=== PATIENT | male | born 1980 | race Caucasian/White ===

== ENCOUNTER 2017-10-31 20:59 | Emergency (ER) | payer BC, OTHER ==
[2017-10-31] MEDS ORDERED: TETRACAINE HCL 0.5% OPH SOLN 2 ML OU ONE (21:16)
--- NOTE | 2017-10-31 21:16 | ER Document Report ---
ED Eye Complaint - General Mode of Arrival: Ambulatory Information source: Patient TRAVEL OUTSIDE OF THE [place] IN LAST 30 DAYS: No <ANNE MARSH - Last Filed: 10/31/17 22:09> <BETHANY RICH - Last Filed: 11/01/17 02:38> - General Chief Complaint: Eye Injury Stated Complaint: EYE INJURY Notes: Patient is a 37-year-old male who presents to the emergency department today with complaints of getting [employer] "hydraulic cement" in his eyes bilaterally, right more than left, while at work just prior to arrival today. Patient states he got approximately "half of a handful of powder" in his eyes. Patient states "the powder mixes with water and then it activates". Patient states that when this occurred, he immediately "crawled approximately 200 feet out of the pipe and rinsed his eyes". Patient states he called 911 when exiting the pipe and the police showed up first with a "contact solution". Patient states that his bought him Visine as well which minimally relieved his symptoms. Patient states he called the [employer] who told him that he had a " 3 hour window to play with". Patient states his eyes felt crusty. Patient states he does not believe he inhaled any of the powder. (ANNE MARSH) - Related Data Allergies/Adverse Reactions: brompheniramine maleate [From Rondec] Allergy (Verified 10/31/17 21:22) carbinoxamine maleate [From Rondec] Allergy (Verified 10/31/17 21:22) pseudoephedrine HCl [From Rondec] Allergy (Verified 10/31/17 21:22) Past Medical History - General Information source: Patient - Social History Smoking Status: Never Smoker Cigarette use (# per day): No Frequency of alcohol use: None Drug Abuse: None Lives with: Family Family History: Reviewed & Not Pertinent, CAD, Hyperlipidemia, Thyroid Disfunction - Past Medical History Cardiac Medical History: Reports: Hx Hypercholesterolemia Pulmonary Medical History: Reports: Hx Bronchitis GI Medical History: Reports: Hx Gastroesophageal Reflux Disease Psychiatric Medical History: Reports: Hx Anxiety, Hx Depression Traumatic Medical History: Reports: Hx Fractures Past Surgical History: Reports: Hx Appendectomy, Hx Orthopedic Surgery - ankle pinsright, both knees - Immunizations Immunizations up to date: Yes <ANNE MARSH - Last Filed: 10/31/17 22:09> Review of Systems - Review of Systems Constitutional: No symptoms reported EENT: See HPI, Eye pain - bilateral R>L, "hydraulic cement" Cardiovascular: No symptoms reported Respiratory: See HPI, Other - Denies: Inhaling powder Gastrointestinal: No symptoms reported Genitourinary: No symptoms reported Male Genitourinary: No symptoms reported Musculoskeletal: No symptoms reported Skin: No symptoms reported Hematologic/Lymphatic: No symptoms reported Neurological/Psychological: No symptoms reported -: Yes All other systems reviewed and negative <ANNE MARSH - Last Filed: 10/31/17 22:09> Physical Exam - Vital signs Interpretation: Normal - General General appearance: Appears well, Alert - HEENT Head: Normocephalic, Atraumatic Eyes: Normal Cornea: Corneal abrasion, Flourescein stain uptake Extraocular movements intact: Yes Pupils: PERRL - Respiratory Respiratory status: No respiratory distress Chest status: Nontender Breath sounds: Normal Chest palpation: Normal - Cardiovascular Rhythm: Regular Heart sounds: Normal auscultation Murmur: No - Abdominal Inspection: Normal Distension: No distension Bowel sounds: Normal Tenderness: Nontender Organomegaly: No organomegaly - Back Back: Normal, Nontender - Extremities General upper extremity: Normal inspection, Nontender, Normal color, Normal ROM , Normal temperature General lower extremity: Normal inspection, Nontender, Normal color, Normal ROM , Normal temperature, Normal weight bearing. No: Jeff's sign - Neurological Neuro grossly intact: Yes Cognition: Normal Orientation: AAOx4 [place] Coma Scale Eye Opening: Spontaneous Aren Coma Scale Verbal: Oriented [place] Coma Scale Motor: Obeys Commands Aren Coma Scale Total: 15 Speech: Normal Motor strength normal: LUE, RUE, LLE, RLE Sensory: Normal - Psychological Associated symptoms: Normal affect, Normal mood - Skin Skin Temperature: Warm Skin Moisture: Dry Skin Color: Normal <BETHANY RICH - Last Filed: 11/01/17 02:38> - Vital signs Vitals: Temp Pulse Resp BP Pulse Ox 97.7 F 77 18 136/97 H 97 10/31/17 21:06 10/31/17 21:06 10/31/17 21:06 10/31/17 21:06 10/31/17 21:06 Course <ANNE MARSH - Last Filed: 10/31/17 22:09> <BETHANY RICH - Last Filed: 11/01/17 02:38> - Re-evaluation Re-evalutation: 11/01/17 Patient is a 37-year-old man who got hydraulic concrete in his bilateral eyes. Left eye has had complete resolution of symptoms after irrigation. Right eye has a very large corneal abrasion at 6:00 taking up about 20% of his iris. Patient was discussed with ophthalmology, , who plans to see the patient in the morning. He has been given erythromycin and Polytrim as well as ketorolac eyedrops. Patient is agreeable to this plan. He has had multiple re-evaluations. Stable for discharge. (BETHANY RICH) - Vital Signs Vital signs: Temp Pulse Resp BP Pulse Ox 97.7 F 77 18 136/97 H 97 10/31/17 21:06 10/31/17 21:06 10/31/17 21:06 10/31/17 21:06 10/31/17 21:06 Procedures - Eye Procedure Right Foreign body removal: Right Alcaine Drops Administered: Yes Fluorescein applied: Left Antibiotic Oinment/Drps Admin: Right eye Slit lamp used: No <BETHANY RICH - Last Filed: 11/01/17 02:38> Discharge <ANNE MARSH - Last Filed: 10/31/17 22:09> <BETHANY RICH - Last Filed: 11/01/17 02:38> - Discharge Clinical Impression: Chemical exposure of eye Corneal abrasion, right Qualifiers: Encounter type: initial encounter Qualified Code(s): S05.01XA - Injury of conjunctiva and corneal abrasion without foreign body, right eye, initial encounter Condition: Stable Disposition: HOME, SELF-CARE Instructions: Corneal Abrasion ([facility]) Additional Instructions: Please put drops in eye as instructed. Please follow-up with ophthalmology in the morning. Forms: Return to Work Referrals: OSORIO WELLS MD [Primary Care Provider] - Follow up as needed AHSAN WILKS DO [ACTIVE STAFF] - 11/01/17 8:00 am Scribe Attestation: 11/01/17 02:37 I personally performed the services described in the documentation, reviewed and edited the documentation which was dictated to the scribe in my presence, and it accurately records my words and actions. (BETHANY RICH) Scribe Documentation - Scribe Written by Scribe:: Sameer Man, 10/31/2017 2231 acting as scribe for :: Walker <ANNE MARSH - Last Filed: 10/31/17 22:09>
[2017-10-31 21:22] VITALS: BP 136/97
[2017-10-31] MEDS ORDERED: KETOROLAC TROMETHAMINE 0.45% 4 DROP/0.4 ML DROPERETTE OD ONE (23:43)
[2017-10-31] MEDS ORDERED: ERYTHROMYCIN 0.5% OPH OINTMENT 3.5 GM (ER DISP) OP PRN (23:44)
[2017-10-31] MEDS ORDERED: POLYMYXIN B SULFATE/TMP OPH SOLN (10 ML/ER DISP) OD PRN (23:44)
== END 2017-11-01 01:12 | disposition home or self-care (01) ==
LOC: ER 20:59
DX: S05.01XA Injury of conjunctiva and corneal abrasion without foreign body, right eye, initial encounter (principal); T15.92XA Foreign body on external eye, part unspecified, left eye, initial encounter; T15.91XA Foreign body on external eye, part unspecified, right eye, initial encounter; H57.13 Ocular pain, bilateral; W45.8XXA Other foreign body or object entering through skin, initial encounter; Y99.0 Civilian activity done for income or pay
CPT/HCPCS: 99283; J3490

== ENCOUNTER 2018-03-23 14:57 | Emergency (ER) | payer BC, OTHER ==
[2018-03-23] MEDS ORDERED: DEXAMETHASONE SOD PHOS INJ 10 MG/1 ML VIAL IM ONE (16:31)
[2018-03-23] MEDS ORDERED: IPRATROPIUM/ALBUTEROL 0.5-2.5 MG/3 ML AMPUL NEB ONE (16:32)
--- NOTE | 2018-03-23 16:36 | ER Document Report ---
ED Respiratory Problem - General Chief Complaint: Cough Stated Complaint: BREATHING DIFFICULTY Time Seen by Provider: 03/23/18 16:31 Mode of Arrival: Ambulatory Information source: Patient Notes: 37-year-old male presented ED for cough cold congestion shortness of breath and wheezing. He states he was scared to be home with him breathing the way it is. He states he has a history of asthma and has an albuterol inhaler at home. TRAVEL OUTSIDE OF THE [place] IN LAST 30 DAYS: No - HPI Patient complains to provider of: Short of breath Onset: Other - Date Duration: Intermittent episodes Quality of pain: No pain Severity: None Pain Level: Denies Short of Breath: Mild Cough: Nonproductive Sputum amount: None Associated symptoms: Congestion, Cough, Short of breath, Wheezing Similar symptoms previously: Yes Recently seen / treated by doctor: No - Related Data Allergies/Adverse Reactions: brompheniramine maleate [From Rondec] Allergy (Verified 10/31/17 21:22) carbinoxamine maleate [From Rondec] Allergy (Verified 10/31/17 21:22) pseudoephedrine HCl [From Rondec] Allergy (Verified 10/31/17 21:22) Past Medical History - General Information source: Patient - Social History Smoking Status: Current Every Day Smoker Cigarette use (# per day): Yes - Pack and half a day Chew tobacco use (# tins/day): No Smoking Education Provided: Yes - 4 minutes Frequency of alcohol use: None Drug Abuse: None Occupation: Public works Lives with: Family Family History: Reviewed & Not Pertinent, CAD, Hyperlipidemia, Thyroid Disfunction Patient has suicidal ideation: No Patient has homicidal ideation: No - Past Medical History Cardiac Medical History: Reports: Hx Hypercholesterolemia Pulmonary Medical History: Reports: Hx Bronchitis EENT Medical History: Reports: None Neurological Medical History: Reports: None Endocrine Medical History: Reports: None Renal/ Medical History: Reports: None Malignancy Medical History: Reports None GI Medical History: Reports: Hx Gastroesophageal Reflux Disease Musculoskeletal Medical History: Reports None Skin Medical History: Reports None Psychiatric Medical History: Reports: Hx Anxiety, Hx Depression, Hx Post Traumatic Stress Disorder Traumatic Medical History: Reports: Hx Fractures Infectious Medical History: Reports: None Past Surgical History: Reports: Hx Appendectomy, Hx Orthopedic Surgery - ankle pinsright, both knees - Immunizations Immunizations up to date: Yes Review of Systems - Review of Systems Constitutional: No symptoms reported EENT: No symptoms reported Cardiovascular: No symptoms reported Respiratory: Cough, Short of breath, Wheezing Gastrointestinal: No symptoms reported Genitourinary: No symptoms reported Male Genitourinary: No symptoms reported Musculoskeletal: No symptoms reported Skin: No symptoms reported Hematologic/Lymphatic: No symptoms reported Neurological/Psychological: No symptoms reported -: Yes All other systems reviewed and negative Physical Exam - Vital signs Vitals: Temp Pulse Resp BP Pulse Ox 98.8 F 82 22 H 139/78 H 96 03/23/18 15:03/23/18 15:03/23/18 15:03/23/18 15:03/23/18 15:09 Interpretation: Normal - General General appearance: Appears well, Alert - HEENT Head: Normocephalic, Atraumatic Eyes: Normal Pupils: PERRL - Respiratory Respiratory status: No respiratory distress Chest status: Nontender Breath sounds: Normal Chest palpation: Normal - Cardiovascular Rhythm: Regular Heart sounds: Normal auscultation Murmur: No - Abdominal Inspection: Normal Distension: No distension Bowel sounds: Normal Tenderness: Nontender Organomegaly: No organomegaly - Back Back: Normal, Nontender - Extremities General upper extremity: Normal inspection, Nontender, Normal color, Normal ROM , Normal temperature General lower extremity: Normal inspection, Nontender, Normal color, Normal ROM , Normal temperature, Normal weight bearing. No: Jeff's sign - Neurological Neuro grossly intact: Yes Cognition: Normal Orientation: AAOx4 [place] Coma Scale Eye Opening: Spontaneous Aren Coma Scale Verbal: Oriented [place]iss Coma Scale Motor: Obeys Commands Aren Coma Scale Total: 15 Speech: Normal Motor strength normal: LUE, RUE, LLE, RLE Sensory: Normal - Psychological Associated symptoms: Normal affect, Normal mood - Skin Skin Temperature: Warm Skin Moisture: Dry Skin Color: Normal Course - Re-evaluation Re-evalutation: 03/24/18 01:47 Patient was treated with Decadron IM and albuterol nebulizer as well as DuoNeb. Patient stated he felt much better after the nebulizer treatments. He stated he did have a albuterol inhaler at home. He was instructed to follow-up with his primary doctor as soon as possible. Patient was discharged home feeling much better and breathing much easier he stated. His lungs were clear at discharge. - Vital Signs Vital signs: Temp Pulse Resp BP Pulse Ox 98.1 F 97 18 148/89 H 97 03/23/18 17:54 03/23/18 17:54 03/23/18 17:54 03/23/18 17:54 03/23/18 17:54 - Diagnostic Test Radiology reviewed: Image reviewed, Reports reviewed Discharge - Discharge Clinical Impression: Bronchospasm, acute URI (upper respiratory infection) Qualifiers: URI type: unspecified URI Qualified Code(s): J06.9 - Acute upper respiratory infection, unspecified Condition: Stable Disposition: HOME, SELF-CARE Additional Instructions: UPPER RESPIRATORY ILLNESS: You have a viral infection of the respiratory passages -- a "cold." This common infection causes nasal congestion, drainage, and often sore throat and cough. It is highly contagious. The disease usually lasts about 10 to 14 days. There is no "cure" for the viral infection -- it must run its course. If there is a complication, such as bacterial infection in the nose, sinuses, middle ear, or bronchial tubes, antibiotics may be required. The antibiotics won't affect the virus. Drink plenty of fluids. A humidifier may help. An expectorant medication or decongestant may make you more comfortable. Use acetaminophen or ibuprofen for fever or aches. See the doctor if fever persists over two days, if there is any significant worsening of your symptoms, or if you simply fail to improve as expected. BRONCHOSPASM: You have tightness in the bronchial tubes, called bronchospasm. This often occurs with bronchial infections. Allergies, inhaled chemicals, and polluted or cold air can also provoke bronchospasm. It's more likely in patients with asthma in the family. Emergency treatment of bronchospasm may include adrenaline shots or bronchodilator aerosol. You may feel lightheaded and have a rapid pulse for an hour or two. Rest and get plenty of fluids. At home, we'll treat you with a bronchodilator inhaler. Antibiotics and corticosteroids may be required for some patients. Until you recover, avoid chemical fumes, dusts, pollens, and exercising in very cold or dry air. If you smoke, stop now!! If you develop a fever, increased wheezing, chest pain, or severe shortness of breath, you should contact the doctor immediately. COUGH-SUPPRESSANT & EXPECTORANT MEDICATION: You are to use a cough medication as needed for relief of symptoms. This medicine is a combination of an expectorant (to make the mucous thinner and more easily "coughed up") and a cough suppressant (to reduce the frequency of coughing). The cough-suppressant medicine is related to narcotics. You may experience mild nausea and sleepiness. Some patients who are very sensitive to narcotics may have stomach pain from this medicine. Taking the medicine with food reduces these side effects. Do not drive or work with machinery until you know how this medicine affects you. The expectorant should have no side effects. Iodine-containing expectorants (such as organidin) should not be taken by persons with active thyroid disease unless approved by your doctor. Call the doctor if you develop shortness of breath, hives, rash, itching, lightheadedness, or severe nausea and vomiting. INHALED BRONCHODILATORS: You have received a treatment of and/or prescription for an inhaled bronchodilator -- a medication which stimulates the airways in the lung to dilate. This improves the flow of air in asthma, bronchitis, and emphysema. These medicines have some similarity to adrenaline, and can cause similar side effects: shakiness, racing heart, and a sense of nervousness. These side effects decrease with time. Contact your doctor if these side effects are severe. Do not over-use the medicine. Too-frequent use of the inhaler may make it ineffective. Call your doctor if the inhaler is not controlling your symptoms at the prescribed doses. STEROID MEDICATION: You have been given an injection of or oral medicine of the cortisone/ steroid class. This medication is used to control inflammation or allergy. Austin t is usually only given for a short period of time, until the acute process subsides. There are usually no side effects from short-term use of cortisone-like medications. Some persons feel an increased sense of well-being and are not sleepy at bedtime. Long-term use of cortisone medications is best avoided, unless required for a severe condition. If your condition does not remit, or relapses after the course of corticosteroid medication, you should consult your physician. USE OF ACETAMINOPHEN (Tylenol): Acetaminophen may be taken for pain relief or fever control. It's much safer than aspirin, offering a wider range of "safe" dosages. It is safe during . Some brand names are Tylenol, Panadol, Datril, Anacin 3, Tempra, and Liquiprin. Acetaminophen can be repeated every four hours. The following are maximum recommended dosages: >89 pounds or adults 650 mg to 900 mg Acetaminophen can be repeated every four hours. Maximum dose not to exceed 4000 mg a day. SMOKING: If you smoke, you should stop smoking. The tar and chemicals in cigarette smoke are harmful. Smoking has been shown to cause: emphysema chronic bronchitis lung cancer mouth and throat cancer stomach and pancreas cancer premature aging defects In addition, smoking increases ear and lung infections in children of smokers. FOLLOW-UP CARE: If you have been referred to a physician for follow-up care, call the physician s office for an appointment as you were instructed or within the next two days. If you experience worsening or a significant change in your symptoms, notify the physician immediately or return to the Emergency Department at any time for re-evaluation. Forms: Elevated Blood Pressure, Smoking Cessation Education Referrals: OSORIO WELLS MD [Primary Care Provider] - Follow up as needed
[2018-03-23] MEDS: ALBUTEROL SULFATE 0.083% NEB 2.5 MG/3 ML AMPUL NEB SCH ×2 (16:37→16:38)
--- NOTE | 2018-03-23 17:40 | RADIOLOGY REPORT (SQ) ---
EXAM DESCRIPTION: CHEST 2 VIEWS COMPLETED DATE/TIME: 03/23/2018 5:31 pm REASON FOR STUDY: SHORT OF BREATH COUGH WHEEZING COMPARISON: Chest x-ray 07/19/2014. EXAM PARAMETERS: NUMBER OF VIEWS: two views TECHNIQUE: Digital Frontal and Lateral radiographic views of the chest acquired. RADIATION DOSE: NA LIMITATIONS: none FINDINGS: LUNGS AND PLEURA: No consolidation, pneumothorax or pleural effusion. MEDIASTINUM AND HILAR STRUCTURES: No masses or contour abnormalities. HEART AND VASCULAR STRUCTURES: Heart normal size. No evidence for failure. BONES: No acute findings. HARDWARE: None in the chest. IMPRESSION: NO ACUTE RADIOGRAPHIC FINDING IN THE CHEST. TECHNICAL DOCUMENTATION: JOB ID: [id number] 2010 [employer]- All Rights Reserved Reading location - IP/workstation name: [email or web address]
[2018-03-23 17:57] VITALS: BP 148/89
[2018-03-23] MEDS ORDERED: GUAIFENESIN 600 MG TABLET.SA PO ONE (18:05)
== END 2018-03-23 18:20 | disposition home or self-care (01) ==
LOC: ER 14:57
DX: J06.9 Acute upper respiratory infection, unspecified (principal); J20.9 Acute bronchitis, unspecified; F17.210 Nicotine dependence, cigarettes, uncomplicated; E78.00 Pure hypercholesterolemia, unspecified
CPT/HCPCS: 99406; 94640 ×2; 99283; 96372; 71046; J1100; J7620

== ENCOUNTER 2018-04-01 02:44 | Emergency (ER) | payer BC ==
[2018-04-01] MEDS ORDERED: KETOROLAC TROMETHAMINE 60 MG/2 ML SDV IM ONE (04:26)
[2018-04-01] MEDS ORDERED: DIAZEPAM 5 MG TABLET PO ONE (04:26)
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
[2018-04-01 05:08] VITALS: BP 112/60
== END 2018-04-01 05:09 | disposition home or self-care (01) ==
LOC: ER 02:44
DX: M54.5 Low back pain (principal); M62.830 Muscle spasm of back
CPT/HCPCS: 99283; 96372; J1885

== ENCOUNTER → 2018-04-18 | Outpatient (CLI) | payer BC ==
[2018-04-18 07:55] LABS: COLLECTION METHOD DRY COLLECTION; SPECIMEN CONTAINER POLYPROPYLENE CUP
[2018-04-18 08:36] LABS: COLLECTION SITE OFF-SITE; DAYS ABSTINENT 6 DAYS (2-7); ROUND CELL CONC. 1.1 X10^6/mL (<5.1); SA NONMOTILE COUNT1 0; SA NONMOTILE COUNT2 0; SA ROUND CELL COUNT1 12; SA ROUND CELL COUNT2 10; SA STRAIGHT MOTILITY CNT 1 0; SA STRAIGHT MOTILITY CNT 2 0; SEMEN TESTING TIME 807
== END ==
LOC: LAB 07:46
PROVIDERS: ATTEND Urology
DX: R79.89 Other specified abnormal findings of blood chemistry (principal)
CPT/HCPCS: 36415; 83001; 83002; 84146; 84153; 88230; 88262; 89321

== ENCOUNTER 2018-06-16 22:15 | Emergency (ER) | payer BC ==
[2018-06-16 23:04] LABS: ABSOLUTE BASOPHILS # (AUTO) 0.1 10^3/uL (0.0-0.2); ABSOLUTE EOSINOPHILS # (AUTO) 0.5 10^3/uL (0.0-0.6); ABSOLUTE LYMPHOCYTES (AUTO) 4.8 10^3/uL (0.5-4.7); ABSOLUTE MONOCYTES (AUTO) 1.2 10^3/uL (0.1-1.4); ABSOLUTE NEUT (AUTO) 7.3 10^3/uL (1.7-8.2); BASOPHILS % (AUTO) 0.8 % (0-2); EOSINOPHILS % (AUTO) 3.8 % (0-6); HEMOGLOBIN 15.1 g/dL (13.5-17.0); LYMPHOCYTES % (AUTO) 34.2 % (13-45); MEAN CORPUSCULAR HEMOGLOBIN 30.4 pg (27.0-33.4); MEAN CORPUSCULAR HGB CONC 35.8 g/dL (32.0-36.0); MEAN CORPUSCULAR VOLUME 85 fl (80-97); MONOCYTES % (AUTO) 8.4 % (3-13); PLATELET COUNT 329 10^3/uL (150-450); RED BLOOD COUNT 4.95 10^6/uL (4.35-5.55); RED CELL DISTRIBUTION WIDTH 13.1 % (11.5-14.0); SEGMENTED NEUTROPHILS % (AUTO) 52.8 % (42-78); TOTAL CELLS COUNTED % (AUTO) 100 %; WHITE BLOOD COUNT 13.9 10^3/uL (4.0-10.5)
[2018-06-16 23:06] LABS: APPEARANCE,URINE CLEAR; BILIRUBIN,URINE NEGATIVE (NEGATIVE); COLOR,URINE STRAW; GLUCOSE, URINE NEGATIVE (NEGATIVE); KETONES,URINE NEGATIVE (NEGATIVE); LEUKOCYTE ESTERASE,URINE NEGATIVE (NEGATIVE); NITRITE,URINE NEGATIVE (NEGATIVE); PROTEIN,URINE NEGATIVE (NEGATIVE); URINE SPECIFIC GRAVITY 1.008; UROBILINOGEN,URINE NEGATIVE mg/dL (<2.0)
[2018-06-16 23:18] LABS: ALANINE AMINOTRANSFERASE 19 U/L (21-72); ALBUMIN 4.4 g/dL (3.5-5.0); ALKALINE PHOSPHATASE 40 U/L (38-126); ANION GAP 7 (5-19); ASPARTATE AMINO TRANSFERASE 23 U/L (17-59); BILIRUBIN,DIRECT 0.3 mg/dL (0.0-0.4); BILIRUBIN,TOTAL 0.3 mg/dL (0.2-1.3); BLOOD UREA NITROGEN 9 mg/dL (7-20); CALCIUM 9.3 mg/dL (8.4-10.2); CARBON DIOXIDE 30 mmol/L (22-30); CHLORIDE 106 mmol/L (98-107); GLUCOSE 85 mg/dL (75-110); LIPASE 105.4 U/L (23-300); POTASSIUM 4.2 mmol/L (3.6-5.0); SODIUM 142.9 mmol/L (137-145); TOTAL PROTEIN 7.2 g/dL (6.3-8.2)
--- NOTE | 2018-06-16 23:55 | ER Document Report ---
ED General - General Chief Complaint: High Blood Pressure Stated Complaint: DIZZY Time Seen by Provider: 06/16/18 23:13 Notes: Patient is a 38-year-old male that comes to the emergency department for chief complaint of 2 separate episodes within the past few days where he felt flushed , he felt like his heart was racing, he states that he had his blood pressure checked and it was elevated at 140s systolic, he states that he thinks he might have had panic attacks because he has had frequent panic attacks in the past but he wants to be sure. He denies any chest pain, passing out, shortness of breath, fever. He takes Klonopin as needed for panic attacks, he is on Prozac and Depakote because of a history of PTSD, he is also treated for hyperlipidemia and GERD. He smokes, he admits to high caffeine intake. He denies any current symptoms. TRAVEL OUTSIDE OF THE [place] IN LAST 30 DAYS: No - Related Data Allergies/Adverse Reactions: brompheniramine maleate [From [facility]] Allergy (Verified 10/31/17 21:22) carbinoxamine maleate [From [facility]] Allergy (Verified 10/31/17 21:22) pseudoephedrine HCl [From [facility]] Allergy (Verified 10/31/17 21:22) Past Medical History - General Information source: Patient - Social History Smoking Status: Current Every Day Smoker Smoking Education Provided: Yes - <3 min Frequency of alcohol use: None Drug Abuse: None Lives with: Spouse/Significant other Family History: Reviewed & Not Pertinent, CAD, Hyperlipidemia, Thyroid Disfunction Patient has suicidal ideation: No Patient has homicidal ideation: No - Past Medical History Cardiac Medical History: Reports: Hx Hypercholesterolemia Denies: Hx Coronary Artery Disease, Hx Heart Attack, Hx Hypertension Pulmonary Medical History: Reports: Hx Bronchitis Denies: Hx Asthma, Hx COPD, Hx Pneumonia Neurological Medical History: Denies: Hx Cerebrovascular Accident, Hx Seizures Renal/ Medical History: Denies: Hx Peritoneal Dialysis GI Medical History: Reports: Hx Gastroesophageal Reflux Disease Musculoskeletal Medical History: Denies Hx Arthritis Psychiatric Medical History: Reports: Hx Anxiety, Hx Depression, Hx Post Traumatic Stress Disorder Traumatic Medical History: Reports: Hx Fractures Past Surgical History: Reports: Hx Appendectomy, Hx Orthopedic Surgery - ankle pinsright, both knees - Immunizations Immunizations up to date: Yes Review of Systems - Review of Systems Constitutional: No symptoms reported EENT: No symptoms reported Cardiovascular: See HPI Respiratory: No symptoms reported Gastrointestinal: No symptoms reported Genitourinary: No symptoms reported Male Genitourinary: No symptoms reported Musculoskeletal: No symptoms reported Skin: No symptoms reported Hematologic/Lymphatic: No symptoms reported Neurological/Psychological: See HPI Physical Exam - Vital signs Vitals: Temp Pulse Resp BP Pulse Ox 98.2 F 74 20 149/79 H 98 06/16/18 22:32 06/16/18 22:32 06/16/18 22:32 06/16/18 22:32 06/16/18 22:32 - Notes Notes: GENERAL: Alert, interacts well. No acute distress. HEAD: Normocephalic, atraumatic. EYES: Pupils equal, round, and reactive to light. Extraocular movements intact. ENT: Oral mucosa moist, tongue midline. Oropharynx unremarkable. Airway patent. Nares patent, no nasal septal hematoma, TM's intact. Somewhat hard of hearing. Wearing a hearing aid. NECK: Full range of motion. Supple. Trachea midline. LUNGS: Clear to auscultation bilaterally, no wheezes, rales, or rhonchi. No respiratory distress. HEART: Regular rate and rhythm. No murmur ABDOMEN: Soft, non-tender. Non-distended. Bowel sounds present in all 4 quadrants. GENITOURINARY: Deferred EXTREMITIES: Moves all 4 extremities spontaneously. No edema, normal radial and dorsalis pedis pulses bilaterally. No cyanosis. BACK: no cervical, thoracic, lumbar midline tenderness. No saddle anesthesia, normal distal neurovascular exam. NEUROLOGICAL: Alert and oriented x3. Normal speech. [cranial nerves II through XII grossly intact]. PSYCH: Normal affect, normal mood. SKIN: Warm, dry, normal turgor. No rashes or lesions noted. Course - Re-evaluation Re-evalutation: EKG shows sinus rhythm at a rate of 60, NJ interval 140, QTc 432, no T wave inversions or ST segment changes in consecutive leads, no significant change from prior. Chemistry, troponin all reviewed from initial triage labs and are unremarkable. CBC showing mild leukocytosis with elevation of lymphocytes. Patient with unremarkable exam, no current complaints. Patient requesting to leave without any further evaluation. I did discuss potential arrhythmia, patient did not have chest pain, he did not have a syncopal episode. Low suspicion of life- threatening arrhythmia, ACS, pulmonary embolism, dissection based on his asymptomatic evaluation, workup, and description of events. Discussed smoking cessation, reduce caffeine use, cardiology follow-up, and return precautions in detail. Patient and significant other state satisfaction and agreement. - Vital Signs Vital signs: Temp Pulse Resp BP Pulse Ox 98.2 F 62 17 104/69 100 06/17/18 00:31 06/17/18 00:31 06/17/18 00:31 06/17/18 00:01 06/17/18 00:31 - Laboratory Result Diagrams: 06/16/18 22:50 06/16/18 22:50 Laboratory results interpreted by me: 06/16/18 06/16/18 22:50 22:50 WBC 13.9 H Absolute Lymphocytes 4.8 H ALT 19 L Discharge - Discharge Clinical Impression: Palpitations, Anxiety Condition: Stable Disposition: HOME, SELF-CARE Additional Instructions: Your workup and evaluation at this time does not show any concerning abnormality. In regards to palpitations I recommend that you significantly reduce her caffeine intake and that you stop smoking. If you continue to have palpitations I recommend follow-up with cardiology referral for additional evaluation and management. Continue current medications for anxiety/panic attack, follow-up with your primary care provider. Return if you worsen including passing out, chest pain, difficulty breathing, or any other concerning or worsening symptoms. Referrals: JOHN CURIEL MD [ACTIVE STAFF] - Follow up as needed CATHY LYNN MD [ACTIVE STAFF] - Follow up as needed
[2018-06-17 00:26] VITALS: BP 104/69
--- NOTE | 2018-06-17 13:03 | EKG REPORT ---
SEVERITY:- NORMAL ECG - SINUS RHYTHM : Confirmed by: Marlen Daly MD 17-Jun-2018 13:03:08
== END 2018-06-17 00:31 | disposition home or self-care (01) ==
LOC: ER 22:15
DX: R00.2 Palpitations (principal); F41.9 Anxiety disorder, unspecified; R42 Dizziness and giddiness; E78.5 Hyperlipidemia, unspecified; K21.9 Gastro-esophageal reflux disease without esophagitis; Z79.899 Other long term (current) drug therapy; F17.200 Nicotine dependence, unspecified, uncomplicated
CPT/HCPCS: 36415; 80053; 81001; 83690; 84484; 85025; 93005; 93010; 99284